=== PATIENT | male | born 1945 | race Caucasian/White ===

== ENCOUNTER 2025-03-07 17:52 | Emergency (ER) | payer BC, OTHER ==
[2025-03-07 18:33] LABS: Absolute Lymphocytes (CBC) 1.1 K/uL (0.7-4.9); Hematocrit 48.3 % (39.6-49.0); Hemoglobin 16.0 g/dL (13.6-17.9); MCH 27.2 pg (27.0-35.0); MCHC 33.1 g/dL (32.0-36.0); MCV 82.1 fL (80-100); MPV 8.4 fL (7.6-11.3); Nucleated RBC Absolute Count 0.0 (0-0); Nucleated Red Blood Cells % 0.2 % (0-0); RBC Red Blood Cell Count 5.89 M/uL (4.33-5.43); White Blood Count 13.40 thou/uL (4.3-10.9)
[2025-03-07] MEDS ORDERED: TENECTEPLASE 50 MG/10 ML VIAL IV ONE (18:35)
--- NOTE | 2025-03-07 18:36 | RAD REPORT ---
EXAM: CT brain without contrast HISTORY: Left-sided weakness . COMPARISON: 2010 TECHNIQUE: Multiple contiguous axial images were obtained and a CT of the brain without contrast. Sagittal and coronal reformats were performed. Automated exposure control, adjustment of the mA and/or kV according to patient size, and/or itera tive reconstruction. Unless otherwise specified, incidental findings do not require dedicated imaging follow-u FINDINGS: An intracranial bleed is not seen The ventricles are prominent but have only slightly progressed since 2010. The prominence of the vent ricles presumably the sequela of the atrophy.. Normal pressure hydrocephalus is considered less likely. Diffuse cerebral atrophy is present. No extra-axial fluid collection noted No significant hypodensity within the brain No fluid within the visualized sinuses or mastoids noted. IMPRESSION: No acute intracranial abnormality noted. If the patient's symptoms persist MRI of the brain would be recommended. from the emergency room was notified at 6:30 PM March 07, 2025
[2025-03-07 18:42] LABS: PT Prothrombin Time 12.9 SECONDS (10-13.0); Protime INR 1.15
[2025-03-07 19:07] LABS: ALT/SGPT 26 U/L (16-61); AST/SGOT 21 U/L (15-37); Albumin 3.8 g/dL (3.4-5.0); Albumin/Globulin Ratio 1.1 (1.1-1.8); Alkaline Phosphatase 61 U/L (45-117); Anion Gap 12.8 mEq/L (5.0-15.0); BUN Blood Urea Nitrogen 13 mg/dL (7-18); C-Reactive Protein 6.82 mg/L (<3.00); Globulin 3.6 g/dL (2.3-3.5); Glucose Level 171 mg/dL (74-106); Magnesium 2.1 mg/dL (1.6-2.4); NT PRO-BNP 200 pg/mL (<450); Potassium 4.8 mEq/L (3.5-5.1); Troponin High Sensitivity 11.9 pg/mL (<58.9)
[2025-03-07 19:09] LABS: Bilirubin Indirect, Calculated 0.3 mg/dL (0.2-0.8)
--- NOTE | 2025-03-07 19:15 | RAD REPORT ---
EXAMINATION: CTA HEAD CLINICAL INDICATION: Left-sided weakness TECHNIQUE: Axial CT images were obtained through the head after 100 cc Isovue-370 intravenous contras t utilizing angiographic protocol with 3D post-processing (maximum intensity projection images, volume rendered images and/or shaded surface rendered images). One or more of the following dose red uction techniques were used: Automated exposure control, adjustment of the mA and/or kV according to patient size, and/or iterative reconstruction. Unless otherwise specified, incidental findings do not require dedicated imaging follow-up. COMPARISON: None FINDINGS: 2 mm segment of the basilar artery is unopacified. Anterior cerebral, middle cerebral, posterior cerebral and internal carotid arteries bilaterally unre markable No aneurysm seen. 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
--- NOTE | 2025-03-07 19:15 | RAD REPORT ---
EXAMINATION: Neck Angio CLINICAL INDICATION: Left-sided weakness TECHNIQUE: Axial CT images were obtained from the aortic arch to the skull base after intravenous adm inistration of 100 cc Isovue-370 utilizing angiographic protocol. Multiplanar reformats, as well as 3D post-processing (maximum intensity projection images, volume rendered images and/or shaded surface rendered images) were generated and reviewed. One or more of the following dose reduction techniques were used: Automated exposure control, adjustment of the mA and/or kV according to patient size, and/or iterative reconstruction. Unless otherwise specified, incidental findings do not require dedicated imaging follow-up. COMPARISON: No prior exam. FINDINGS: The visualized aortic arch and great vessels do not demonstrate a significant abnormality The proximal and mid right vertebral artery are unopacified. The distal right vertebral artery is patent. Left vertebral artery unremarkable Mild plaque within the common carotid, internal carotid and external carotid arteries bilaterally. No significant stenosis noted. A dissection is not seen. Methods for NASCET criteria: Mild stenosis, 0% to 49%; Moderate stenosis 50% to 69%; Severe stenosis, 70% to 99% IMPRESSION: Nonopacification of the proximal and mid right vertebral artery. This could be a chronic occlusion or dissection.
--- NOTE | 2025-03-07 19:16 | EDPHYS ---
Physician Documentation [facility] Name: Benja Means Age: 80 yrs Sex: Male : 1945 Arrival Date: 03/07/2025 Time: 17:52 Bed 5 Private MD: ED Physician Pawel Lowe HPI: 03/07 18:15 This 80 yrs old Male presents to ER via Unassigned with complaints of S/S of hitesh Possible Stroke. 18:15 The patient's problem is reported as dysphasia, incoherent speech. Onset: The hitesh symptoms/episode began/occurred at 16:58. Duration: The episode is continuous. Context: the episode(s) was witnessed, FOUND BY 1658. The symptoms are alleviated by nothing. The symptoms are aggravated by nothing. Associated signs and symptoms: The patient has no apparent associated signs or symptoms. Severity of symptoms: At their worst the symptoms were moderate in the emergency department the symptoms are unchanged. Patient's baseline: Neuro: alert and fully oriented. It is unknown whether or not the patient has had similar symptoms in the past. Historical: - Allergies: 18:35 No Known Allergies; jl7 - PMHx: 18:35 Hypertensive disorder; jl7 - Immunization history:: Adult Immunizations unknown. - Infectious Disease History:: Denies. - Family history:: not pertinent. - Social history:: Smoking status: unknown. ROS: 18:15 Constitutional: Negative for fever, chills, and weight loss, Eyes: Negative for injury, hitesh pain, redness, and discharge, ENT: Negative for injury, pain, and discharge, Neck: Negative for injury, pain, and swelling, Cardiovascular: Negative for chest pain, palpitations, and edema, Respiratory: Negative for shortness of breath, cough, wheezing, and pleuritic chest pain, Abdomen/GI: Negative for abdominal pain, nausea, vomiting, diarrhea, and constipation, Back: Negative for injury and pain, : Negative for injury, bleeding, discharge, and swelling, MS/Extremity: Negative for injury and deformity, Skin: Negative for injury, rash, and discoloration, Psych: Negative for depression, anxiety, suicide ideation, homicidal ideation, and hallucinations, Allergy/Immunology: Negative for hives, rash, and allergies, Endocrine: Negative for neck swelling, polydipsia, polyuria, polyphagia, and marked weight changes, 18:15 Neuro: Positive for speech changes, weakness, of the left arm and left leg, 19:11 Neuro: Positive for hitesh Exam: 18:15 Constitutional: This is a well developed, well nourished patient who is awake, alert, hitesh and in no acute distress. Head/Face: Normocephalic, atraumatic. Eyes: Pupils equal round and reactive to light, extra-ocular motions intact. Lids and lashes normal. Conjunctiva and sclera are non-icteric and not injected. Cornea within normal limits. Periorbital areas with no swelling, redness, or edema. ENT: Nares patent. No nasal discharge, no septal abnormalities noted. Tympanic membranes are normal and external auditory canals are clear. Oropharynx with no redness, swelling, or masses, exudates, or evidence of obstruction, uvula midline. Mucous membranes moist. Neck: Trachea midline, no thyromegaly or masses palpated, and no cervical lymphadenopathy. Supple, full range of motion without nuchal rigidity, or vertebral point tenderness. No Meningismus. Chest/axilla: Normal chest wall appearance and motion. Nontender with no deformity. No lesions are appreciated. Cardiovascular: Regular rate and rhythm with a normal S1 and S2. No gallops, murmurs, or rubs. Normal PMI, no JVD. No pulse deficits. Respiratory: Lungs have equal breath sounds bilaterally, clear to auscultation and percussion. No rales, rhonchi or wheezes noted. No increased work of breathing, no retractions or nasal flaring. Abdomen/GI: Soft, non-tender, with normal bowel sounds. No distension or tympany. No guarding or rebound. No evidence of tenderness throughout. Back: No spinal tenderness. No costovertebral tenderness. Full range of motion. Male : Normal genitalia with no discharge or lesions. Skin: Warm, dry with normal turgor. Normal color with no rashes, no lesions, and no evidence of cellulitis. 18:15 Musculoskeletal/extremity: Circulation is intact in all extremities. Sensation intact. Compartment Syndrome exam of affected extremity: is normal. Weight bearing: is unable to bear weight, DVT Exam: No signs of deep vein thrombosis. no pain, no swelling, no tenderness, negative Homans' sign noted on exam, no appreciated bluish discoloration, no erythema, no increased warmth, 18:15 Neuro: Orientation: unable to test, SPEECH , Mentation: appropriate for stated age, Memory: unable to test, Cranial nerves: grossly normal, is grossly normal based on the patient's age, no acute changes, Cerebellar function: unable to test, Motor: Strength is 1/5 in the left arm and left leg, Sensation: unable to test, Gait: not tested. seizure activity, is not displayed by the patient, 18:19 Radiologist reports: SEE RADIO REPORTS [facility] 19:18 ECG was reviewed by the Attending Physician. [facility] Vital Signs: 18:26 BP 161 / 61; Pulse 90; Resp 15; Pulse Ox 98% ; jl7 18:30 Weight 95.25 kg; ph 19:10 BP 180 / 77; Pulse 84; Resp 16; Pulse Ox 97% ; jj7 19:23 BP 190 / 90; Pulse 88; Resp 17; Pulse Ox 96% ; jj7 NIH Stroke Scale Scores: 18:35 NIHSS Score: 12 ph 18:47 NIHSS Score: 11 hitesh 19:10 NIHSS Score: 14 jj7 MDM: 18:09 Medical Screening Exam initiated hitesh 18:20 Differential diagnosis: CVA, TIA, Dementia, paralysis, Alzheimer disease, Parkinson hitesh disease, metabolic disorder, drug effects. Data reviewed: vital signs, nurses notes, EMS record, lab test result(s), EKG, radiologic studies, CT scan, plain films. I considered the following discharge prescriptions or medication management in the emergency department Medications were administered in the Emergency Department. See MAR. Independent interpretation of the following test(s) in the Emergency Department EKG: See my EKG interpretation above. Care significantly affected by the following chronic conditions: Diabetes, Hypertension. 19:11 TNKase (Tenecteplase) Screening: Indications: Definite evidence of stroke, ischemic, hitesh embolic, or hypertensive: Yes. Treatment will start within 4.5 hours onset of symptoms: Yes. No evidence of intracranial hemorrhage or CT of head and no evidence of peripheral hemorrhage or recent CVA: Yes. Consent for thrombolytic therapy: Yes. Contraindications: Other: NO CONTRAINDICATIONS. Consideration of Admission/Observation Escalation of care including admission/observation considered. Test considered but Not performed: MRI: NO MRI BRAIN. 03/07 18:12 Order name: Basic Metabolic Panel [facility] 03/07 18:12 Order name: CBC with Diff; Complete Time: 18:42 [facility] 03/07 18:12 Order name: LFT's [facility] 03/07 18:12 Order name: Magnesium [facility] 03/07 18:12 Order name: NT PRO-BNP [facility] 03/07 18:12 Order name: PT-INR; Complete Time: 18:42 [facility] 03/07 18:12 Order name: Troponin HS [facility] 03/07 18:12 Order name: CRP [facility] 03/07 18:41 Order name: Glucose, Ancillary Testing; Complete Time: 18:42 [facility] 03/07 18:44 Order name: CREATININE WHOLE BLOOD [facility] 03/07 18:12 Order name: XRAY Chest (1 view) [facility] 03/07 18:12 Order name: CT Stroke Brain w/o Contrast; Complete Time: 18:42 [facility] 03/07 18:12 Order name: CT Head Angio [facility] 03/07 18:12 Order name: CT Neck Angio [facility] 03/07 18:12 Order name: EKG; Complete Time: 18:12 [facility] 03/07 18:12 Order name: Cardiac monitoring; Complete Time: 18:33 [facility] 03/07 18:12 Order name: EKG - Nurse/Tech; Complete Time: 18:33 [facility] 03/07 18:12 Order name: IV Saline Lock; Complete Time: 19:29 [facility] 03/07 18:12 Order name: Labs collected and sent; Complete Time: 19:29 [facility] 03/07 18:12 Order name: O2 Per Protocol; Complete Time: 18:33 [facility] 03/07 18:12 Order name: O2 Sat Monitoring; Complete Time: 18:33 [facility] EC:18 Rate is 91 beats/min. Rhythm is regular. QRS [place] is Normal. [place] interval is normal. QRS hitesh interval is normal. QT interval is normal. No Q waves. T waves are Normal. ST Segment is depressed in leads I, aVL. Clinical impression: NSR w/ Non-specific ST/T Changes. Interpreted by me. Reviewed by me. Administered Medications: 18:40 Drug: TNK FOR STROKE - Tenecteplase IV (Administer 10 ml NS flush BEFORE and ph AFTER tenecteplase) 25 mg IV at per protocol once; 0.25mg/kg, MAX DOSE 25 mg, IVP over 5 seconds {Co-Signature: af3 (Ailyn Haddad RN).} Route: IV; Rate: per protocol; Site: left antecubital; 18:45 Follow up: Response: No adverse reaction; IV Status: Completed infusion ph 19:16 Not Given (pt transferredd): [id number] mg IVP once ph 19:17 Not Given (pt transferredd): ns 0.9% 1000 ml IV at 1000 ml once; to be given as a bolus ph over 60 minutes 19:18 Not Given (pt transferredd): folic acid1 mg IVPB once ph Point of Care Testing: Blood Glucose: 18:35 Blood Glucose: 141 mg/dL; ph Ranges: Critical Glucose Levels:Adult <50 mg/dl or >400 mg/dl <40 mg/dl or >180 mg/dl Disposition Summary: 03/07/25 19:16 Transfer Ordered Notes: Transfer Location: [facility] hitesh Reason: Higher level of care hitesh Condition: Serious hitesh Problem: new hitesh Symptoms: have improved hitesh Accepting Physician: TO [facility](03/07/25 19:30) ph Diagnosis - Cerebral infarction, unspecified - ACUTE, 2.5 MM BASILAR ARTERY OCCULUSION, ALSO hitesh RIGHT VERTERBRAL ARTERY PROXIMAL/ MID UNOPACIFIED, DISSECTION VS CHRONIC OCCULUSION - Aphasia hitesh - 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 Total time: 75 minutes NIH Stroke Scale - NIH Stroke Score Date: 03/07/2025 Time: 18:35 Total Score = 12 10. Dysarthria (speech clarity - read or repeat words) - 0(Normal) 11. Extinction and Inattention (visual/tactile/auditory/spatial/personal) - 0(No abnormality) 1a. Level of Consciousness (LOC) - 0(Alert) 1b. Level of Consciousness (LOC) (Month \T\ Age) - 0(Both) 1c. LOC Commands (Open \T\ Closes Eyes/Fur Puller) - 1(One) 2. Best Gaze (Lateral Gaze Paresis) - 1(Partial gaze palsy) 3. Visual Field Loss - 0(No visual loss) 4. Facial Palsy - 1(Minor Paralysis) 5a. Left Arm: Motor (10-second hold) - 3(No effort against gravity) 5b. Right Arm: Motor (10-second hold) - 0(No drift) 6a. Left Leg: Motor (5-second hold - always test supine) - 3(No effort against gravity) 6b. Right Leg: Motor (5-second hold - always test supine) - 0(No drift) 7. Limb Ataxia (finger/nose \T\ heel/kim - test with eyes open) - 1(Present in one limb) 8. Sensory Loss (pinprick arms/legs/face) - 1(Mild to moderate loss) 9. Best Language: Aphasia (description/naming/reading) - 1(Mild to moderate aphasia) Initials: NIH Stroke Scale - NIH Stroke Score Date: 03/07/2025 Time: 18:47 Total Score = 11 10. Dysarthria (speech clarity - read or repeat words) - 1(Mild to Moderate) 11. Extinction and Inattention (visual/tactile/auditory/spatial/personal) - 0(No abnormality) 1a. Level of Consciousness (LOC) - 0(Alert) 1b. Level of Consciousness (LOC) (Month \T\ Age) - 0(Both) 1c. LOC Commands (Open \T\ Closes Eyes/Fur Puller) - 0(Both) 2. Best Gaze (Lateral Gaze Paresis) - 0(Normal) 3. Visual Field Loss - 0(No visual loss) 4. Facial Palsy - 1(Minor Paralysis) 5a. Left Arm: Motor (10-second hold) - 4(No movement) 5b. Right Arm: Motor (10-second hold) - 0(No drift) 6a. Left Leg: Motor (5-second hold - always test supine) - 4(No movement) 6b. Right Leg: Motor (5-second hold - always test supine) - 0(No drift) 7. Limb Ataxia (finger/nose \T\ heel/kim - test with eyes open) - 0(Absent) 8. Sensory Loss (pinprick arms/legs/face) - 0(Normal) 9. Best Language: Aphasia (description/naming/reading) - 1(Mild to moderate aphasia) Initials: [facility] NIH Stroke Scale - NIH Stroke Score Date: 03/07/2025 Time: 19:10 Total Score = 14 10. Dysarthria (speech clarity - read or repeat words) - 0(Normal) 11. Extinction and Inattention (visual/tactile/auditory/spatial/personal) - 0(No abnormality) 1a. Level of Consciousness (LOC) - 0(Alert) 1b. Level of Consciousness (LOC) (Month \T\ Age) - 1(One) 1c. LOC Commands (Open \T\ Closes Eyes/Fur Puller) - 0(Both) 2. Best Gaze (Lateral Gaze Paresis) - 1(Partial gaze palsy) 3. Visual Field Loss - 0(No visual loss) 4. Facial Palsy - 1(Minor Paralysis) 5a. Left Arm: Motor (10-second hold) - 4(No movement) 5b. Right Arm: Motor (10-second hold) - 0(No drift) 6a. Left Leg: Motor (5-second hold - always test supine) - 4(No movement) 6b. Right Leg: Motor (5-second hold - always test supine) - 0(No drift) 7. Limb Ataxia (finger/nose \T\ heel/kim - test with eyes open) - 1(Present in one limb) 8. Sensory Loss (pinprick arms/legs/face) - 1(Mild to moderate loss) 9. Best Language: Aphasia (description/naming/reading) - 1(Mild to moderate aphasia) Initials: jj7 Signatures: Dispatcher [employer] EDPawel Fleming MD MD cha Hall, Patricia, RN RN Claus Villa RN RN jl7 Boo, Ailyn JIMENEZ af3 Corrections: (The following items were deleted from the chart) 18:12 18:12 BASIC METABOLIC PANEL+C.LAB.BRZ ordered. EDMS EDMS 18:12 18:12 CBC+H.LAB.BRZ ordered. EDMS EDMS 18:12 18:12 HEPATIC FUNCTION+C.LAB.BRZ ordered. EDMS EDMS 18:12 18:12 MAGNESIUM+C.LAB.BRZ ordered. EDMS EDMS 18:12 18:12 PROBNP+C.LAB.BRZ ordered. EDMS EDMS 18:12 18:12 PROTIME (+INR)+COAG.LAB.BRZ ordered. EDMS EDMS 18:12 18:12 Troponin High Sensitivity+C.LAB.BRZ ordered. EDMS EDMS 18:12 18:12 C-REACTIVE PROTEIN+C.LAB.BRZ ordered. EDMS EDMS 18: 18:12 UA Rfx Freddie Cult if indicated+U.LAB.BRZ ordered. EDMS EDMS 18:13 Neck Angio+CT.RAD.BRZ ordered. EDMS EDMS 19:30 19:16 TO [facility] hitesh ph
--- NOTE | 2025-03-07 19:16 | ER ---
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 Coronavirus screen: At this time, the client does not indicate any symptoms associated with coronavirus-19. Ebola Screen: No symptoms or risks identified at this time. An acute neurological deficit is present. The charge nurse has been notified. The patient has been moved to a treatment area. The patients blood glucose was checked before arriving to the hospital and was found to be normal. Initial Sepsis Screen: Does the patient meet any 2 criteria? No. Patient's initial sepsis screen is negative. Does the patient have a suspected source of infection? No. Patient's initial sepsis screen is negative. Risk Assessment: Do you want to hurt yourself or someone else? Patient reports no desire to harm self or others. Onset of symptoms is unknown. Care prior to arrival: Glucose check: 154 BP 130/62, HR 85. 18:26 Method Of Arrival: EMS: [place] [id number] 18:26 Acuity: KHOA 2 jl7 Triage Assessment: 17:00 The onset of the patients symptoms was March 07, 2025 at 17:00. ph Stroke Activation: Physician: ED Attending; Name: Mynor; Notified At: 17:52; Arrived At: 17:52 Physician: Mid-Level Provider; Name: ; Notified At: 17:52; Arrived At: Physician: [not used]; Name: ; Notified At: ; Arrived At: Physician: [not used]; Name: ; Notified At: ; Arrived At: Physician: [not used]; Name: ; Notified At: ; Arrived At: Historical: - Allergies: 18:35 No Known Allergies; jl7 - PMHx: 18:35 Hypertensive disorder; jl7 - Immunization history:: Adult Immunizations unknown. - Infectious Disease History:: Denies. - Family history:: not pertinent. - Social history:: Smoking status: unknown. Screenin:26 [facility] ED Fall Risk Assessment (Adult) History of falling in the last 3 months, ph including since admission No falls in past 3 months (0 pts) Confusion or Disorientation No (0 pts) Intoxicated or Sedated No (0 pts) Impaired Gait Yes (1 pt) Mobility Assist Device Used No (0 pt) Altered Elimination No (0 pt) Score/Fall Risk Level 3 or more points = High Risk Oriented to surroundings, Maintained a safe environment, Hourly rounding (assess needs \T\ fall precautionary measures) done, Used ambulatory aids as needed (educated on \T\ assisted with). Abuse screen: Denies threats or abuse. Denies injuries from another. Nutritional screening: No deficits noted. Tuberculosis screening: No symptoms or risk factors identified. Assessment: 17:52 Reassessment: Code stroke called, pt to CT via EMS stretcher with EMS and Claus JIMENEZ. [facility] 18:03 Reassessment: Code stroke called overhead. ph 18:35 VAN Scoring: Arm Drift: Flaccid/no antigravity Visual Disturbance: No visual ph disturbance noted. [place] Swallow Protocol Exclusion Criteria: Unable to remain alert for testing: No NPO for medical/surgical reason by provider order No Head-of-bed restricted <30 degrees Tracheostomy tube present No No thin liquids due to preexisting dysphagia/baseline modified diet thickened liquids No Brief Cognitive Screen What is your name? Normal, Where are you right now? Normal, What year is it? Normal. Oral Mechanism Examination Facial Symmetry: Abnormal Motion: Abnormal Lip Closure: Abnormal Oral Mechanism Result: Result: FAIL. TNKase (Tenecteplase) Screening: Indications: Definite evidence of stroke, ischemic, embolic, or hypertensive: Yes. Treatment will start within 4.5 hours onset of symptoms: Yes. No evidence of intracranial hemorrhage or CT of head and no evidence of peripheral hemorrhage or recent CVA: Yes. Consent for thrombolytic therapy: Yes. General: Appears in no apparent distress. Behavior is calm, cooperative. Pain: Denies pain. Neuro: Level of Consciousness is awake, alert, obeys commands, Oriented to person, place, time, situation, [employer]visor are weak on left Weakness in left arm(s) leg(s) Speech is slurred, Facial droop on left, Pupils are PERRLA, Intact. Cardiovascular: Capillary refill < 3 seconds in bilateral fingers Patient's skin is warm and dry. Respiratory: Airway is patent Respiratory effort is even, unlabored. Derm: Skin is pink, warm \T\ dry. 19:20 Reassessment: [facility] at bedside. ph 19:38 Reassessment: REPORT GIVEN TO SHELBI WITH IR AT [facility]. j Vital Signs: 18:26 BP 161 / 61; Pulse 90; Resp 15; Pulse Ox 98% ; jl7 18:30 Weight 95.25 kg; ph 19:10 BP 180 / 77; Pulse 84; Resp 16; Pulse Ox 97% ; jj7 19:23 BP 190 / 90; Pulse 88; Resp 17; Pulse Ox 96% ; jj7 NIH Stroke Scale Scores: 18:35 NIHSS Score: 12 ph 18:47 NIHSS Score: 11 hitesh 19:10 NIHSS Score: 14 j ED Course: 18:08 Patient arrived in ED. jl7 18:09 Pawel Lowe MD is Attending Physician. hitesh 18:13 Jaci Copeland, RN is Primary Nurse. ph 18:21 CT Stroke Brain w/o Contrast In Process Unspecified. EDMS 18:28 CT Head Angio In Process Unspecified. EDMS 18:28 CT Neck Angio In Process Unspecified. EDMS 18:33 EKG done, by ED staff, reviewed by Pawel Lowe MD. rk3 18:35 Triage completed. jl7 18:35 Arm band placed on right wrist. jl7 18:37 Initial lab(s) drawn, by sd, sent to lab. Inserted saline lock: 22 gauge in left jl7 antecubital area, using aseptic technique. Blood collected. Flushed with 10 mL NS. 18:52 Dr. Lowe [facility] Dr. Chaves \T\[id number]. Number for nurse to nurse report [phone]. Life flight to transfer pt. 18:58 XRAY Chest (1 view) In Process Unspecified. EDMS 19:27 Patient has correct armband on for positive identification. Bed in low position. Call ph light in reach. Side rails up X2. environmental monitoring technician on. Pulse ox on. NIBP on. 19:28 No provider procedures requiring assistance completed. Patient transferred, IV remains ph in place. Administered Medications: 18:40 Drug: TNK FOR STROKE - Tenecteplase IV (Administer 10 ml NS flush BEFORE and ph AFTER tenecteplase) 25 mg IV at per protocol once; 0.25mg/kg, MAX DOSE 25 mg, IVP over 5 seconds {Co-Signature: af3 (Ailyn Haddad RN).} Route: IV; Rate: per protocol; Site: left antecubital; 18:45 Follow up: Response: No adverse reaction; IV Status: Completed infusion ph 19:16 Not Given (pt transferredd): [id number] mg IVP once ph 19:17 Not Given (pt transferredd): ns 0.9% 1000 ml IV at 1000 ml once; to be given as a bolus ph over 60 minutes 19:18 Not Given (pt transferredd): folic acid1 mg IVPB once ph Medication: 19:27 VIS not applicable for this client. ph Point of Care Testing: Blood Glucose: 18:35 Blood Glucose: 141 mg/dL; ph Ranges: Outcome: 19:16 ER care complete, transfer ordered by MD. proctor 19:30 Transferred by helicopter to [facility], Transfer form completed. ph X-rays sent w/ patient. 19:30 Condition: stable 19:30 Instructed on the need for transfer, 19:30 Patient left the ED. ph NIH Stroke Scale - NIH Stroke Score Date: 03/07/2025 Time: 18:35 Total Score = 12 10. Dysarthria (speech clarity - read or repeat words) - 0(Normal) 11. Extinction and Inattention (visual/tactile/auditory/spatial/personal) - 0(No abnormality) 1a. Level of Consciousness (LOC) - 0(Alert) 1b. Level of Consciousness (LOC) (Month \T\ Age) - 0(Both) 1c. LOC Commands (Open \T\ Closes Eyes/International Logistics Manager) - 1(One) 2. Best Gaze (Lateral Gaze Paresis) - 1(Partial gaze palsy) 3. Visual Field Loss - 0(No visual loss) 4. Facial Palsy - 1(Minor Paralysis) 5a. Left Arm: Motor (10-second hold) - 3(No effort against gravity) 5b. Right Arm: Motor (10-second hold) - 0(No drift) 6a. Left Leg: Motor (5-second hold - always test supine) - 3(No effort against gravity) 6b. Right Leg: Motor (5-second hold - always test supine) - 0(No drift) 7. Limb Ataxia (finger/nose \T\ heel/kim - test with eyes open) - 1(Present in one limb) 8. Sensory Loss (pinprick arms/legs/face) - 1(Mild to moderate loss) 9. Best Language: Aphasia (description/naming/reading) - 1(Mild to moderate aphasia) Initials: NIH Stroke Scale - NIH Stroke Score Date: 03/07/2025 Time: 18:47 Total Score = 11 10. Dysarthria (speech clarity - read or repeat words) - 1(Mild to Moderate) 11. Extinction and Inattention (visual/tactile/auditory/spatial/personal) - 0(No abnormality) 1a. Level of Consciousness (LOC) - 0(Alert) 1b. Level of Consciousness (LOC) (Month \T\ Age) - 0(Both) 1c. LOC Commands (Open \T\ Closes Eyes/International Logistics Manager) - 0(Both) 2. Best Gaze (Lateral Gaze Paresis) - 0(Normal) 3. Visual Field Loss - 0(No visual loss) 4. Facial Palsy - 1(Minor Paralysis) 5a. Left Arm: Motor (10-second hold) - 4(No movement) 5b. Right Arm: Motor (10-second hold) - 0(No drift) 6a. Left Leg: Motor (5-second hold - always test supine) - 4(No movement) 6b. Right Leg: Motor (5-second hold - always test supine) - 0(No drift) 7. Limb Ataxia (finger/nose \T\ heel/kim - test with eyes open) - 0(Absent) 8. Sensory Loss (pinprick arms/legs/face) - 0(Normal) 9. Best Language: Aphasia (description/naming/reading) - 1(Mild to moderate aphasia) Initials: [facility] NIH Stroke Scale - NIH Stroke Score Date: 03/07/2025 Time: 19:10 Total Score = 14 10. Dysarthria (speech clarity - read or repeat words) - 0(Normal) 11. Extinction and Inattention (visual/tactile/auditory/spatial/personal) - 0(No abnormality) 1a. Level of Consciousness (LOC) - 0(Alert) 1b. Level of Consciousness (LOC) (Month \T\ Age) - 1(One) 1c. LOC Commands (Open \T\ Closes Eyes/International Logistics Manager) - 0(Both) 2. Best Gaze (Lateral Gaze Paresis) - 1(Partial gaze palsy) 3. Visual Field Loss - 0(No visual loss) 4. Facial Palsy - 1(Minor Paralysis) 5a. Left Arm: Motor (10-second hold) - 4(No movement) 5b. Right Arm: Motor (10-second hold) - 0(No drift) 6a. Left Leg: Motor (5-second hold - always test supine) - 4(No movement) 6b. Right Leg: Motor (5-second hold - always test supine) - 0(No drift) 7. Limb Ataxia (finger/nose \T\ heel/kim - test with eyes open) - 1(Present in one limb) 8. Sensory Loss (pinprick arms/legs/face) - 1(Mild to moderate loss) 9. Best Language: Aphasia (description/naming/reading) - 1(Mild to moderate aphasia) Initials: jj7 Signatures: Dispatcher [employer] EDPawel Fleming MD MD cha Hall, Patricia, RN Claus Coleman ph RN RN jl7 Kayli Segundo RN RN jj7 Mary Gonzales Rozana rk3 Ailyn Haddad RN af3
--- NOTE | 2025-03-07 19:19 | RAD REPORT ---
Procedure: Chest Single View HISTORY: Chest pain COMPARISON: 2012 FINDINGS: The lungs appear clear of acute infiltrate. No significant pleural effusion noted. The heart is normal size. IMPRESSION: No acute abnormality is displayed.
[2025-03-08 00:51] VITALS: BP 190/90; O2SAT 96
== END 2025-03-07 19:30 | disposition short-term general hospital (02) ==
LOC: ER 17:52
DX: I63.22 Cerebral infarction due to unspecified occlusion or stenosis of basilar artery (principal); I69.920 Aphasia following unspecified cerebrovascular disease; I10 Essential (primary) hypertension; R29.712 NIHSS score 12
CPT/HCPCS: 85025; 80048; 36415; 83735; 85610; 82565; 82947; 80076; 84484; 83880; 86140; 70496; 70498; 70450; 71045; Q9967; J3101; 93005